=== PATIENT | female | born 1955 | race American Indian/Alaskan Native ===

== ENCOUNTER 2018-05-21 08:41 | Emergency (ER) | payer SELFPAY ==
--- NOTE | 2018-05-21 11:03 | RAD REPORT ---
EXAM DESCRIPTION: RAD - Foot Right 3 View - 05/21/2018 10:53 am CLINICAL HISTORY: Fall, foot pain COMPARISON: None. FINDINGS: No fracture, dislocation or periosteal reaction identifiable. IP joint space narrowing pre sent second- fifth toes. Second- fifth MTP joints are spared. Patient has moderate bunion deformity a nd valgus angulation deformity at first MTP joint. First MTP joint space narrowing is present. No acu te component seen. No air or foreign body in the soft tissues. No plantar spur. IMPRESSION: Degenerative changes are present as detailed. No acute bone finding identifiable.
--- NOTE | 2018-05-21 11:04 | RAD REPORT ---
EXAM DESCRIPTION: RAD - Foot Left 3 View - 05/21/2018 10:53 am CLINICAL HISTORY: Fall, foot pain COMPARISON: None. FINDINGS: No fracture, dislocation or periosteal reaction. No acute or destructive bony process. IP joint space narrowing is present second- fifth toes. Patient has a prominent bunion deformity with v algus angulation at the first MTP joint. No acute component at this site. No plantar spur is seen. Sm all spur at the Achilles attachment. No air or foreign body in the soft tissues. IMPRESSION: Degenerative change in the foot as detailed. No fracture or acute finding.
--- NOTE | 2018-05-21 11:12 | RAD REPORT ---
EXAM DESCRIPTION: CT - CTHCSPWOC - 05/21/2018 10:56 am CLINICAL HISTORY: Fall, blunt force trauma to the head and face, head, face and neck pain COMPARISON: None. TECHNIQUE: Axial 5 mm thick images of the head were obtained. Axial 2 mm thick images of the cervica l spine were obtained with sagittal and coronal reconstruction images generated and reviewed. All CT scans are performed using dose optimization technique as appropriate and may include automated exposure control or mA/KV adjustment according to patient size. FINDINGS: No intracranial hemorrhage, mass, edema or acute intracranial finding. No suspicion for ac port gamble infarction. No extra-axial fluid collections. Mastoid air cells are clear. No fracture of the card scraper nial vault. Physiologic calcifications are present. Sinuses, facial bones and orbits are separately d etailed. Cervical bodies are normal in height. No subluxation abnormality. Right lateral tilt of the cervical spine is believed to be positioning artifact. No skullbase fracture. No fracture changes are seen. Pa dmitry has facet degenerative change at multiple levels. This is most prominent at C3-4. No central sp inal stenosis seen. No significant disc space narrowing seen. No fracture or acute bony abnormality. Central canal detail is inherently limited. No paraspinal mass or hematoma. A few small sub centimeter bilateral cervical lymph nodes are present . No bulky lymphadenopathy. IMPRESSION: No hemorrhage, edema or acute intracranial finding. Cervical spine degenerative changes are present as detailed. No acute findings seen. Orbits, facial bones and sinuses are separately detailed. Negative CT cervical spine examination for acute or significant finding.
--- NOTE | 2018-05-21 11:16 | RAD REPORT ---
EXAM DESCRIPTION: CT - Facial Bones W/ Mpr - 05/21/2018 10:56 am CLINICAL HISTORY: Fall, blunt force trauma to the face, soft tissue swelling upper lip and nose COMPARISON: CT head same date, CT head June 2010 TECHNIQUE: Axial 2 millimeter thick images of the facial bones were obtained with sagittal and coron al reconstruction imaging. All CT scans are performed using dose optimization technique as appropriate and may include automated exposure control or mA/KV adjustment according to patient size. FINDINGS: Patient has an empty sella configuration. Cystic sella mass is unlikely. Size of the sella has not changed from 2009. Mastoid air cells are clear. No air-fluid level in the paranasal sinuses. Trace amount of mucosal thi ckening is seen in the right maxillary sinus. Condyles of the mandible are normally positioned. No ma ndible fracture seen. No globe or orbital content abnormality seen. Swelling of the upper lip and nos e is not associated with any fracture deformity. Nasal septum is midline. IMPRESSION: No facial bone fracture identified. No acute facial bone, sinus or orbital abnormality.
[2018-05-21] MEDS ORDERED: HYDROCODONE/APAP 5/325 MG TAB ONE (11:17)
--- NOTE | 2018-05-21 11:23 | RAD REPORT ---
EXAM DESCRIPTION: RAD - Wrist Left 3 View - 05/21/2018 10:34 am CLINICAL HISTORY: Fall, wrist pain COMPARISON: None. FINDINGS: No fracture is identified. There is no dislocation or periosteal reaction noted. Degenerat david changes present at the first carpal - metacarpal articulation, mild in degree. Slight widening of the scapholunate joint space is present. IMPRESSION: No acute fracture and no dislocation. Slight widening of the scapholunate joint space is present. However, this is not definitive for ligam entous injury. If the patient has continued, unexplained wrist pain symptoms, followup MR imaging could be performed .
--- NOTE | 2018-05-21 11:39 | ER ---
Nurse's Notes [facility] Name: Zaynab Cochran Age: 63 yrs Sex: Female : 1955 Arrival Date: 05/21/2018 Time: 08:43 Bed 25 Private MD: Nick Campos E Diagnosis: Abrasion of lip and oral cavity;Unspecified sprain of left wrist;Other slipping, tripping and stumbling and falls Presentation: 05/21 09:18 Presenting complaint: Patient states: tripped on curb fell face first and landed on dm5 left arm and face. top lip and nose swollen. pt complaining of both feet hurting. No bleeding at this time. Transition of care: patient was not received from another setting of care. 09:18 Method Of Arrival: Ambulatory dm5 09:40 Acuity: HANK 3 dm5 10:30 Onset of symptoms was May 21, 2018. Risk Assessment: Do you want to hurt yourself em or someone else? Patient reports no desire to harm self or others. Initial Sepsis Screen: Does the patient meet any 2 criteria? No. Patient's initial sepsis screen is negative. Does the patient have a suspected source of infection? No. Patient's initial sepsis screen is negative. Care prior to arrival: None. Historical: - Allergies: 09:20 No Known Allergies; dm5 - Home Meds: 09:20 Triamterene-Hydrochlorothiazid Oral [Active]; lisinopril Oral [Active]; amlodipine oral dm5 [Active]; - Immunization history:: Adult Immunizations up to date. - Social history:: Smoking status: Patient/guardian denies using tobacco. - Ebola Screening: : Patient negative for fever greater than or equal to 101.5 degrees Fahrenheit, and additional compatible Ebola Virus Disease symptoms Patient denies exposure to infectious person Patient denies travel to an Ebola-affected area in the 21 days before illness onset No symptoms or risks identified at this time. Screenin:22 Abuse screen: Denies threats or abuse. Denies injuries from another. Nutritional iw screening: No deficits noted. Tuberculosis screening: No symptoms or risk factors identified. Fall Risk None identified. Assessment: 10:21 General: Appears in no apparent distress. Behavior is calm, cooperative. Pain: iw Complains of pain in left arm. Neuro: Level of Consciousness is awake, alert, obeys commands, Oriented to person, place, time. Cardiovascular: Heart tones S1 S2 present. Respiratory: Respiratory effort is even, unlabored, Respiratory pattern is regular, symmetrical. Derm: Skin is intact, is healthy with good turgor. Musculoskeletal: Range of motion: limited in left elbow and left wrist. 11:30 Reassessment: Patient appears in no apparent distress at this time. Patient and/or em family updated on plan of care and expected duration. Pain level reassessed. Patient is alert, oriented x 3, equal unlabored respirations, skin warm/dry/pink. Vital Signs: 09:20 BP 164 / 86; Pulse 66; Resp 16; Temp 98.8; Pulse Ox 98% on R/A; Weight 104.33 kg; dm5 Height 5 ft. 5 in. (165.10 cm); Pain 6/10; 10:30 BP 159 / 77; Pulse 58; Resp 18; Pulse Ox 99% on R/A; Pain 9/10; em 12:03 BP 138 / 90; Pulse 59; Resp 16; Pulse Ox 100% on R/A; Pain 5/10; em 09:20 Body Mass Index 38.27 (104.33 kg, 165.10 cm) dm5 ED Course: 08:43 Patient arrived in ED. as 08:44 Nick Campos MD is Private Physician. as 09:20 Arm band placed on right wrist. Patient placed in waiting room. dm5 09:40 Triage completed. dm5 10:06 Neo Campuzano NP is PHCP. pm1 10:06 Mario Hunter MD is Attending Physician. pm1 10:19 Jaime Loera LVN is Primary Nurse. em 10:34 XRAY Wrist LEFT 3 view In Process Unspecified. EDMS 10:46 Foot Right 3 View XRAY In Process Unspecified. EDMS 10:46 Foot Left 3 View XRAY In Process Unspecified. EDMS 10:56 CT completed. Patient tolerated procedure well. Patient moved to CT via wheelchair. jg6 Patient moved back from CT. 10:57 CT Head C Spine In Process Unspecified. EDMS 10:57 CT Facial Bones W/O Con In Process Unspecified. EDMS 11:16 No provider procedures requiring assistance completed. em 12:01 Patient has correct armband on for positive identification. Bed in low position. Call em light in reach. 12:02 Patient did not have IV access during this emergency room visit. em Administered Medications: 11:14 Drug: [place] 5 mg-325 mg 1 tabs Route: PO; em 12:00 Follow up: Response: No adverse reaction; Pain is decreased em Outcome: 11:38 Discharge ordered by MD. pm1 12:02 Discharged to home ambulatory. em 12:02 Condition: good 12:02 Discharge instructions given to patient, Instructed on discharge instructions, follow up and referral plans. medication usage, Demonstrated understanding of instructions, follow-up care, medications, Prescriptions given X 2. 12:03 Patient left the ED. em Signatures: Dispatcher [employer] Venita Madison RN RN dm5 Jaime Loera, CANNERY WORKER CANNERY WORKER Sondra Stewart Irene, RN RN iw Marinas, Patrick, BEBE FACTORY MAINTENANCE TECHNICIAN pm1 Cece Sanchesg6
--- NOTE | 2018-05-21 11:39 | EDPHYS ---
Physician Documentation [facility] Name: aZynab Cochran Age: 63 yrs Sex: Female : 1955 Arrival Date: 05/21/2018 Time: 08:43 Bed 25 Private MD: Nick Campos E ED Physician Mario Hunter HPI: 05/21 10:30 This 63 yrs old Other Female presents to ER via Ambulatory with complaints of Fall pm1 Injury. 10:30 Details of fall: The patient fell from an upright position, while walking. Onset: The pm1 symptoms/episode began/occurred just prior to arrival. Associated injuries: The patient sustained left wrist, right foot, left foot, pain. Abrasion to outside and inside of lip. Lip swelling. Patient was walking and tripped on an elevation of the sidewalk. Patient landed with both hands out in front of her. Patient hit her lip on the concrete. Patient complaining of bilateral foot pain, left wrist pain, and swelling to lip, and headache. No LOC, neck pain, nausea or vomiting. Historical: - Allergies: 09:20 No Known Allergies; dm5 - Home Meds: 09:20 Triamterene-Hydrochlorothiazid Oral [Active]; lisinopril Oral [Active]; amlodipine oral dm5 [Active]; - Immunization history:: Adult Immunizations up to date. - Social history:: Smoking status: Patient/guardian denies using tobacco. - Ebola Screening: : Patient negative for fever greater than or equal to 101.5 degrees Fahrenheit, and additional compatible Ebola Virus Disease symptoms Patient denies exposure to infectious person Patient denies travel to an Ebola-affected area in the 21 days before illness onset No symptoms or risks identified at this time. ROS: 10:30 Constitutional: Negative for fever, chills, and weight loss, Eyes: Negative for injury, pm1 pain, redness, and discharge, ENT: Negative for injury, pain, and discharge, Neck: Negative for injury, pain, and swelling, Cardiovascular: Negative for chest pain, palpitations, and edema, Respiratory: Negative for shortness of breath, cough, wheezing, and pleuritic chest pain, Abdomen/GI: Negative for abdominal pain, nausea, vomiting, diarrhea, and constipation, Back: Negative for injury and pain. 10:30 Neuro: Negative for headache, weakness, numbness, tingling, and seizure. 10:30 MS/extremity: Positive for pain, of the left foot and right foot and left wrist. 10:30 Skin: Positive for abrasion(s), of the mouth. Exam: 10:30 Constitutional: This is a well developed, well nourished patient who is awake, alert, pm1 and in no acute distress. 10:30 Eyes: Pupils equal round and reactive to light, extra-ocular motions intact. Lids and lashes normal. Conjunctiva and sclera are non-icteric and not injected. Cornea within normal limits. Periorbital areas with no swelling, redness, or edema. ENT: Nares patent. No nasal discharge, no septal abnormalities noted. Tympanic membranes are normal and external auditory canals are clear. Oropharynx with no redness, swelling, or masses, exudates, or evidence of obstruction, uvula midline. Mucous membranes moist. Neck: Trachea midline, no thyromegaly or masses palpated, and no cervical lymphadenopathy. Supple, full range of motion without nuchal rigidity, or vertebral point tenderness. No Meningismus. Chest/axilla: Normal chest wall appearance and motion. Nontender with no deformity. No lesions are appreciated. Cardiovascular: Regular rate and rhythm with a normal S1 and S2. No gallops, murmurs, or rubs. Normal PMI, no JVD. No pulse deficits. Respiratory: Lungs have equal breath sounds bilaterally, clear to auscultation and percussion. No rales, rhonchi or wheezes noted. No increased work of breathing, no retractions or nasal flaring. Abdomen/GI: Soft, non-tender, with normal bowel sounds. No distension or tympany. No guarding or rebound. No evidence of tenderness throughout. Back: No spinal tenderness. No costovertebral tenderness. Full range of motion. Skin: Warm, dry with normal turgor. Normal color with no rashes, no lesions, and no evidence of cellulitis. 10:30 Head/face: Noted is no obvious of injury or deformity except abrasion(s), that are mild, of the upper lip, swelling, that is mild, of the upper lip and lower lip. 10:30 Musculoskeletal/extremity: Extremities: grossly normal except: noted in the heel of left hand: tenderness, There is no evidence of decreased ROM, deformity, noted in the left first toe: tenderness, no evidence of decreased ROM, deformity, swelling, noted in the right first toe: tenderness, no evidence of decreased ROM, deformity, swelling. Vital Signs: 09:20 BP 164 / 86; Pulse 66; Resp 16; Temp 98.8; Pulse Ox 98% on R/A; Weight 104.33 kg; dm5 Height 5 ft. 5 in. (165.10 cm); Pain 6/10; 10:30 BP 159 / 77; Pulse 58; Resp 18; Pulse Ox 99% on R/A; Pain 9/10; em 12:03 BP 138 / 90; Pulse 59; Resp 16; Pulse Ox 100% on R/A; Pain 5/10; em 09:20 Body Mass Index 38.27 (104.33 kg, 165.10 cm) dm5 MDM: 10:06 Patient medically screened. pm1 11:37 Data reviewed: vital signs. Data interpreted: Pulse oximetry: on room air is 99 %. pm1 Interpretation: normal. Counseling: I had a detailed discussion with the patient and/or guardian regarding: the historical points, exam findings, and any diagnostic results supporting the discharge/admit diagnosis, radiology results, the need for outpatient follow up, to return to the emergency department if symptoms worsen or persist or if there are any questions or concerns that arise at home. 05/21 09:22 Order name: XRAY Wrist LEFT 3 view; Complete Time: 11:34 dm5 05/21 10:18 Order name: Foot Right 3 View XRAY; Complete Time: 11:05 pm1 05/21 10:18 Order name: Foot Left 3 View XRAY; Complete Time: 11:05 pm1 05/21 10:18 Order name: CT Head C Spine; Complete Time: 11:34 pm1 05/21 10:18 Order name: CT Facial Bones W/O Con; Complete Time: 11:34 pm1 05/21 11:38 Order name: Splint - Wrist; Complete Time: 12:00 pm1 Administered Medications: 11:14 Drug: [place] 5 mg-325 mg 1 tabs Route: PO; em 12:00 Follow up: Response: No adverse reaction; Pain is decreased em Disposition: 13:56 Co-signature as Attending Physician, Mario Hunter MD I agree with the assessment and kdr plan of care. Disposition: 05/21/18 11:38 Discharged to Home. Impression: Abrasion of lip and oral cavity, Unspecified sprain of left wrist, Other slipping, tripping and stumbling and falls. - Condition is Stable. - Discharge Instructions: Wrist Pain, Wrist Splint. - Prescriptions for Naprosyn 500 mg Oral Tablet - take 1 tablet by ORAL route 2 times per day take with food; 30 tablet. Tylenol- Codeine #3 300-30 mg Oral Tablet - take 2 tablets by ORAL route every 6 hours As needed; 20 tablet. - Medication Reconciliation Form, Thank You Letter, Prescription Opioid Use form. - Follow up: Emergency Department; When: As needed; Reason: Worsening of condition. Follow up: Private Physician; When: 2 - 3 days; Reason: Recheck today's complaints, Continuance of care, Re-evaluation by your physician. - Problem is new. - Symptoms have improved. Signatures: Dispatcher [employer] Venita Madison RN RN dm5 Mario Hunter MD MD [facility] Jaime Loera, SHEEP FARM WORKER SHEEP FARM WORKER em Neo Campuzano, HOME HEALTH AIDE HOME HEALTH AIDE pm1 Corrections: (The following items were deleted from the chart) 12:03 11:38 05/21/2018 11:38 Discharged to Home. Impression: Abrasion of lip and oral cavity; em Unspecified sprain of left wrist; Other slipping, tripping and stumbling and falls. Condition is Stable. Forms are Medication Reconciliation Form, Thank You Letter, Antibiotic Education, Prescription Opioid Use. Follow up: Emergency Department; When: As needed; Reason: Worsening of condition. Follow up: Private Physician; When: 2 - 3 days; Reason: Recheck today's complaints, Continuance of care, Re-evaluation by your physician. Problem is new. Symptoms have improved. pm1
== END 2018-05-21 12:03 | disposition home or self-care (01) ==
LOC: ER 08:41
DX: S63.502A Unspecified sprain of left wrist, initial encounter (principal); S00.512A Abrasion of oral cavity, initial encounter; W18.09XA Striking against other object with subsequent fall, initial encounter; Y93.01 Activity, walking, marching and hiking; Y92.9 Unspecified place or not applicable
CPT/HCPCS: 70450; 70486; 72125; 76377; 99284

== ENCOUNTER 2022-03-02 16:23 | Emergency (ER) | payer SELFPAY ==
--- OUTSIDE RECORDS SUMMARY | 2022-03-02 16:26 | XMS REPORT | Continuity of Care Document ---
:1955 Author Organization [facility] t Address [address] [place] [address] Dr. Mercado [address] [place] [id number] Care Team Providers Name Role Phone CECILUBROECK_L Attending Clinician Unavailable SCHAUBROECK_L Admitting Clinician Unavailable Payers Payer Name Policy Type Policy Number Effective Date Expiration Date S ource Problems This patient has no known problems. Allergies, Adverse Reactions, Alerts This patient has no known allergies or adverse reactions. Medications This patient has no known medications. Procedures This patient has no known procedures. Encounters Start End Encounter Admission Attending Care Care Encounter Source Date/Time Date/Time Type Type Clinicians Facility Department ID 2021-01-19 2021-01-19 Outpatient [facility] [address] 01:03:00 01:03:00 [facility] 2020-12-15 2020-12-15 Outpatient [facility] [address] 01:02:00 01:02:00 [facility] 2020-11-10 2020-11-10 Outpatient [facility] [address] 01:02:00 01:02:00 _L [facility] Results This patient has no known results.
[2022-03-02 18:00] LABS: Protime INR 1.02
[2022-03-02 18:04] LABS: Hematocrit 44.4 % (36.0-45.0); Lymphocytes % 19.9 % (15.3-44.8); MCV 88.6 fL (80-100); MPV 8.6 fL (7.6-11.3); RBC Red Blood Cell Count 5.01 M/uL (3.86-4.86)
[2022-03-02 18:07] LABS: SARS-CoV-2 Antigen Rapid Res Negative (Negative)
[2022-03-02 18:22] LABS: ALT/SGPT 32 U/L (12-78); Albumin 3.6 g/dL (3.4-5.0); Alkaline Phosphatase 93 U/L (45-117); BUN Blood Urea Nitrogen 23 mg/dL (7-18); Bicarbonate 26 mmol/L (21-32); Bilirubin Total 0.2 mg/dL (0.2-1.0); Glomerular Filtration Rate 55 ml/min (=/>90); Glucose Level 90 mg/dL (74-106); NT PRO-BNP 18 pg/mL (<125); Protein, Total 7.5 g/dL (6.4-8.2); Sodium Level 139 mmol/L (136-145); Troponin High Sensitivity 29.2 pg/mL (<58.9)
[2022-03-02 18:23] LABS: AST/SGOT 19 U/L (15-37); Bilirubin Direct < 0.1 mg/dL (0-0.2); Magnesium 2.2 mg/dL (1.8-2.4)
--- NOTE | 2022-03-02 18:39 | RAD REPORT ---
EXAM DESCRIPTION: RAD - Chest Single View - 03/02/2022 6:29 pm CLINICAL HISTORY: weakness COMPARISON: No comparisons FINDINGS: Lines: None. Lungs: Prominence of the pulmonary vasculature. Pleural: No significant pleural effusions or pneumothorax. Cardiac: Enlarged cardiac silhouette. Bones: No acute fractures. Other: IMPRESSION: Mild edema suspected.
--- NOTE | 2022-03-02 18:44 | EDPHYS ---
Physician Documentation [facility] Name: Zaynab Cochran Age: 66 yrs Sex: Female : 1955 Arrival Date: 03/02/2022 Time: 16:26 Bed 8 Private MD: Olamide Castro ED Physician Fiona Scruggs HPI: 03/02 16:58 This 66 yrs old Black Female presents to ER via Ambulatory with complaints of Dizziness.jmm 16:58 The patient has experienced near-syncope. Onset: The symptoms/episode began/occurred jmm gradually. This is a 66-year-old female with history of hypertension and vertigo that presents emerged department with complaints of lightheadedness, fatigue beginning approximately 4 days ago. Patient denies vomiting, abdominal pain, chest pain. States that this does not feel like previous episodes of vertigo.. Historical: - Allergies: 16:39 No Known Allergies; tp1 - Home Meds: 16:39 amlodipine oral [Active]; lisinopril Oral [Active]; Triamterene-Hydrochlorothiazid Oral tp1 [Active]; - PMHx: 16:39 Hypertension; vertigo; tp1 - Immunization history:: Client reports having NOT received the Covid vaccine. Client reports receiving the 2nd dose of the Covid vaccine. - Social history:: Smoking status: Patient denies any tobacco usage or history of. ROS: 16:58 Cardiovascular: Negative for chest pain, palpitations, and edema, Respiratory: Negative jmm for shortness of breath, cough, wheezing, and pleuritic chest pain, Abdomen/GI: Negative for abdominal pain, nausea, vomiting, diarrhea, and constipation. 16:58 Constitutional: Positive for body aches, chills. 16:58 Neuro: Positive for weakness. 16:58 All other systems are negative. Exam: 16:58 Constitutional: This is a well developed, well nourished patient who is awake, alert, jmm and in no acute distress. Head/Face: atraumatic. Eyes: EOMI, no conjunctival erythema appreciated ENT: Moist Mucus Membranes Neck: Trachea midline, Supple Chest/axilla: Normal chest wall appearance and motion. Cardiovascular: Regular rate and rhythm. No edema appreciated Respiratory: Normal respirations, no respiratory distress appreciated Abdomen/GI: Non distended Back: Normal ROM Skin: General appearance color normal MS/ Extremity: Moves all extremities, no obvious deformities appreciated, no edema noted to the lower extremities Neuro: Awake and alert Psych: Behavior is normal, Mood is normal, Patient is cooperative and pleasant 17:41 ECG was reviewed by the Attending Physician. [facility] Vital Signs: 16:35 BP 148 / 82; Pulse 92; Resp 16; Temp 98.1; Pulse Ox 98% on R/A; Weight 113.4 kg; Height tp1 0 ft. 1 in. (4 cm); Pain 0/10; 17:47 BP 149 / 61; Pulse 66; Resp 16; Pulse Ox 99% ; bp 19:25 BP 143 / 75; Pulse 82; Resp 20; Temp 98.9; Pulse Ox 99% on R/A; Pain 0/10; kl 16:35 Body Mass Index 04079.81 (113.40 kg, 4 cm) tp1 MDM: 16:58 Patient medically screened. [facility] 18:43 Data reviewed: vital signs, nurses notes. Counseling: I had a detailed discussion with [facility] the patient and/or guardian regarding: the historical points, exam findings, and any diagnostic results supporting the discharge/admit diagnosis, lab results, radiology results, the need for outpatient follow up, to return to the emergency department if symptoms worsen or persist or if there are any questions or concerns that arise at home. 03/02 17:01 Order name: Basic Metabolic Panel; Complete Time: 18:27 [facility] 03/02 17:01 Order name: CBC with Diff; Complete Time: 18:18 [facility] 03/02 17:01 Order name: LFT's; Complete Time: 18:27 [facility] 03/02 17:01 Order name: Magnesium; Complete Time: 18:27 [facility] 03/02 17:01 Order name: NT PRO-BNP; Complete Time: 18:27 [facility] 03/02 17:01 Order name: PT-INR; Complete Time: 18:18 [facility] 03/02 17:01 Order name: Troponin HS; Complete Time: 18:27 [facility] 03/02 17:01 Order name: XRAY Chest (1 view); Complete Time: 18:40 [facility] 03/02 17:01 Order name: EKG; Complete Time: 17:03 [facility] 03/02 17:01 Order name: Cardiac monitoring; Complete Time: 17:01 [facility] 03/02 17:01 Order name: EKG - Nurse/Tech; Complete Time: 17:46 [facility] 03/02 17:01 Order name: Influenza Screen (a \T\ B); Complete Time: 18:18 [facility] 03/02 17:01 Order name: SARS RAPID; Complete Time: 18:18 [facility] 03/02 17:01 Order name: IV Saline Lock; Complete Time: 17:47 [facility] 03/02 17: Order name: Labs collected and sent; Complete Time: 17:47 [facility] 03/02 17: Order name: O2 Per Protocol; Complete Time: 17: [facility] 03/02 17:01 Order name: O2 Sat Monitoring; Complete Time: : [facility] EC:41 Rate is 69 beats/min. Rhythm is regular. QRS [place] is Normal. SC interval is normal. QRS jmm interval is normal. No ST changes noted. Reviewed by me. Administered Medications: 19:24 Drug: Tamiflu (oseltamivir) 75 mg Route: PO; 19:27 Follow up: Response: No adverse reaction Disposition: 03/03 07:50 STAFF ATTESTATION STATEMENT I was immediately available on-site in the Emergency sd2 Department for consultation in the care of the patient. Fiona Scruggs MD. Disposition Summary: 03/02/22 18:44 Discharge Ordered Location: Home [facility] Condition: Stable [facility] Diagnosis - Influenza [facility] Followup: [facility] - With: Olamide Castro - When: 1 - 2 days - Reason: Recheck today's complaints, Continuance of care, Re-evaluation by your physician Discharge Instructions: - Discharge Summary Sheet [facility] - Influenza, Adult [facility] Forms: - Medication Reconciliation Form [facility] - Thank You Letter [facility] - Antibiotic Education [facility] - Prescription Opioid Use [facility] Prescriptions: - Tamiflu 75 mg Oral Capsule - take 1 tablet by ORAL route every 12 hours for 5 days; 10 tablet; Refills: 0, [facility] Product Selection Permitted Signatures: Dispatcher [employer] Poonam Mcdowell, RN RN Fausto Morgan PA PA jmm Parker, Tiffany, RN RN tp1 Dunlop, Stephanie sd2
--- NOTE | 2022-03-02 18:44 | ER ---
Nurse's Notes [facility] Name: Zaynab Cochran Age: 66 yrs Sex: Female : 1955 Arrival Date: 03/02/2022 Time: 16:26 Bed 8 Private MD: Olamide Castro Diagnosis: Influenza Presentation: 03/02 16:35 Chief complaint: Patient states: stated has felt dizzy and lightheaded since Friday in tp1 a standing and laying position. Has a HX of vertigo. Denies NVD, headache or blurred vision. Coronavirus screen: Vaccine status: Patient reports receiving the 2nd dose of the covid vaccine. Ebola Screen: Patient denies exposure to infectious person. Patient denies travel to an Ebola-affected area in the 21 days before illness onset. Initial Sepsis Screen: Does the patient meet any 2 criteria? No. Patient's initial sepsis screen is negative. Does the patient have a suspected source of infection? No. Patient's initial sepsis screen is negative. Risk Assessment: Do you want to hurt yourself or someone else? Patient reports no desire to harm self or others. Onset of symptoms was February 26, 2022. 16:35 Method Of Arrival: Ambulatory tp1 16:35 Acuity: HANK 3 tp1 Triage Assessment: 16:39 General: Appears in no apparent distress. comfortable, Behavior is calm, cooperative. tp1 Pain: Denies pain. 16:39 Neuro: Level of Consciousness is awake, alert, obeys commands, Oriented to person, tp1 place, time, situation, Reports dizziness, Denies blurred vision headache. Historical: - Allergies: 16:39 No Known Allergies; tp1 - Home Meds: 16:39 amlodipine oral [Active]; lisinopril Oral [Active]; Triamterene-Hydrochlorothiazid Oral tp1 [Active]; - PMHx: 16:39 Hypertension; vertigo; tp1 - Immunization history:: Client reports having NOT received the Covid vaccine. Client reports receiving the 2nd dose of the Covid vaccine. - Social history:: Smoking status: Patient denies any tobacco usage or history of. Screenin:43 Abuse screen: Denies threats or abuse. Denies injuries from another. Nutritional bp screening: No deficits noted. Tuberculosis screening: No symptoms or risk factors identified. Fall Risk None identified. Assessment: 16:43 General: SEE TRIAGE NOTE. Neuro: Level of Consciousness is awake, alert, obeys bp commands, Gait is steady. 17:47 Reassessment: No changes from previously documented assessment. Patient and/or family bp updated on plan of care and expected duration. Pain level reassessed. Vital Signs: 16:35 BP 148 / 82; Pulse 92; Resp 16; Temp 98.1; Pulse Ox 98% on R/A; Weight 113.4 kg; Height tp1 0 ft. 1 in. (4 cm); Pain 0/10; 17:47 BP 149 / 61; Pulse 66; Resp 16; Pulse Ox 99% ; bp 19:25 BP 143 / 75; Pulse 82; Resp 20; Temp 98.9; Pulse Ox 99% on R/A; Pain 0/10; kl 16:35 Body Mass Index 56785.81 (113.40 kg, 4 cm) tp1 ED Course: 16:26 Patient arrived in ED. mr 16:26 Olamide Castro is Private Physician. mr 16:39 Triage completed. tp1 16:39 Arm band placed on. tp1 16:42 Braden Elizabeth, RN is Primary Nurse. bp 16:43 Patient has correct armband on for positive identification. Bed in low position. Call bp light in reach. Side rails up X2. Adult w/ patient. 16:54 [facility] 16:54 Fiona Scruggs is Attending Physician. jmm 17:45 Inserted saline lock: 20 gauge in right antecubital area, using aseptic technique. bp Blood collected. 18:31 XRAY Chest (1 view) In Process Unspecified. EDMS 18:44 Olamide Castro is Referral Physician. m 19:26 No provider procedures requiring assistance completed. IV discontinued, intact, kl bleeding controlled, No redness/swelling at site. Administered Medications: 19:24 Drug: Tamiflu (oseltamivir) 75 mg Route: PO; kl 19:27 Follow up: Response: No adverse reaction kl Medication: 16:43 VIS not applicable for this client. bp Outcome: 18:44 Discharge ordered by . jmm 19:26 Discharged to home ambulatory. kl 19:26 Condition: good 19:26 Discharge instructions given to patient, Instructed on discharge instructions, follow up and referral plans. medication usage, Demonstrated understanding of instructions, follow-up care, medications. 19:27 Patient left the ED. akira Signatures: Dispatcher [employer] Poonam Mcdowell RN RN kl Mickail, Joel, PA PA jmm Rivera, Mary mr Braden Elizabeth RN RN bp Parker, Tiffany, RN RN tp1 Corrections: (The following items were deleted from the chart) 16:41 16:35 Coronavirus screen: Vaccine status: Patient reports being unvaccinated. tp1 tp1
[2022-03-02] MEDS ORDERED: OSELTAMIVIR 75 MG CAP ONE (19:23)
[2022-03-02 19:35] VITALS: O2SAT 99
[2022-03-02 19:38] VITALS: BP 143/75; TEMP 98.9
--- NOTE | 2022-03-04 09:29 | EKG ---
Test Date: 2022-03-02 Test Time: 17:35:59 Remote Encoding Center Manager: BP MEASUREMENT RESULTS: Intervals: Rate: 69 PA: 158 QRSD: 102 QT: 398 QTc: 426 [place]: P: 49 PA: 158 QRS: 41 T: 57 INTERPRETIVE STATEMENTS: Normal sinus rhythm Nonspecific T wave abnormality Abnormal ECG Compared to ECG 10/08/2017 08:35:05 No significant changes Electronically Signed On 03-04-22 09:25:05 CDT by Jose Mireles
== END 2022-03-02 19:27 | disposition home or self-care (01) ==
LOC: ER 16:23
DX: J11.1 Influenza due to unidentified influenza virus with other respiratory manifestations (principal); Z20.822 Contact with and (suspected) exposure to COVID-19; I10 Essential (primary) hypertension
CPT/HCPCS: 36415; 71045; 80048; 80076; 83735; 83880; 84484; 85025; 85610; 87804; 87811; 93005; 99284

== ENCOUNTER 2023-02-21 07:24 | Emergency (ER) | payer OTHER, SELFPAY ==
--- OUTSIDE RECORDS SUMMARY | 2023-02-21 07:26 | XMS REPORT | Continuity of Care Document ---
:1955 Author Organization [facility] Address [address] [place] [address] [place] [id number] Care Team Providers Name Role Phone SCHAUBROECK_L Attending Clinician Unavailable SCHAUBROECK_L Admitting Clinician Unavailable [...] Date/Time Type Type Clinicians Facility Department ID 2022-11-20 2022-11-20 Outpatient [facility] [id number] 00:00:00 00:00:00 [facility] 2022-10-16 2022-10-16 Outpatient [facility] [id number] 00:00:00 00:00:00 [facility] 2022-09-11 2022-09-11 Outpatient [facility] [id number] 00:00:00 00:00:00 [facility] 2021-01-19 2021-01-19 Outpatient [facility] [id number] 01:03:00 01:03:00 [facility] 2020-12-15 2020-12-15 Outpatient [facility] [address] 01:02:00 01:02:00 [facility] 2020-11-10 2020-11-10 Outpatient [place] [id number] 01:02:00 01:02:00 [facility] Results This patient has no known results.
--- NOTE | 2023-02-21 08:06 | RAD REPORT ---
EXAM DESCRIPTION: [place] Single View02/21/2023 7:42 am CLINICAL HISTORY: COUGH COMPARISON: Chest Single View dated 03/02/2022; Neck Angio dated 10/08/2017 TECHNIQUE: Portable AP view of the chest. FINDINGS: The lungs are clear. No pneumothorax or effusion. The cardiac silhouette is again mildly enlarged. Tortuous appearance of the aorta. There is increasing prominence of the caliber of the arch , although some patient rotation limits evaluation. A retrocardiac opacity may relate to a hiatal her marcos, unchanged. IMPRESSION: Tortuous appearance of the aorta with apparent increase in prominence of the caliber of the arch. This could relate to tortuosity, or aneurysmal dilation. If there is persistent clinical co ncern, additional evaluation by CT of the chest would be helpful. No acute pulmonary process.
--- NOTE | 2023-02-21 08:11 | RAD REPORT ---
EXAM DESCRIPTION: CT - Head Brain Wo Cont - 02/21/2023 7:44 am CLINICAL HISTORY: DIZZINESS COMPARISON: Facial Bones W/ Mpr dated 05/21/2018; HEAD BRAIN W O CONTRAST dated 06/29/2010 TECHNIQUE: Noncontrast head CT images were obtained without IV contrast. Multiplanar reformats were generated and reviewed. All CT scans are performed using dose optimization technique as appropriate and may include automated exposure control or mA/KV adjustment according to patient size. FINDINGS: No intracranial hemorrhage, mass, or edema. Midline structures are unremarkable. Normal ventricular caliber for age. Hernandez-white matter differentiation is preserved, without evidence of acute infarct. No abnormal extra- axial fluid collections. Mastoid air cells and visualized portions of the paranasal sinuses are clear. No acute bony findings. IMPRESSION: No evidence of an acute intracranial process.
[2023-02-21] MEDS ORDERED: NA CHLORIDE 0.9% 1,000 ML ONE (08:19)
[2023-02-21 08:56] LABS: Absolute Lymphocytes (CBC) 1.9 K/uL (0.7-4.9); Hematocrit 46.8 % (36.0-45.0); Lymphocytes % 21.1 % (15.3-44.8); MCV 91.9 fL (80-100); MPV 9.4 fL (7.6-11.3)
[2023-02-21 09:01] LABS: Specific Gravity 1.027 (1.005-1.030); Urine Bacteria <20 /HPF (<20); Urine Bilirubin NEGATIVE (Negative); Urine Blood Negative (Negative); Urine Color Light-Yellow (Yellow); Urine Glucose NEGATIVE (Negative); Urine Mucus Slight /HPF (None Seen); Urine Protein TRACE (Negative); Urine RBC <5 /HPF (None Seen); Urine Urobilinogen Normal (Normal)
[2023-02-21 09:02] LABS: Protime INR 1.02
[2023-02-21 09:03] LABS: Urine Clarity Slightly Cloudy (Clear)
--- NOTE | 2023-02-21 09:10 | RAD REPORT ---
EXAM DESCRIPTION: US - CP - 02/21/2023 8:18 am CLINICAL HISTORY: DIZZINESS COMPARISON: Head C Spine Mpr Wo Con dated 05/21/2018 TECHNIQUE: Real-time sonographic grayscale, color duplex, and spectral wave Doppler evaluation of mendoza carotid systems was performed. FINDINGS: Normal high resistance waveforms are noted in both external carotid arteries. The common c arotid arteries and internal carotid arteries show normal low resistance waveforms. No significant plaque formation is seen. Poor penetration limits evaluation. Peak systolic velocity less than 125 cm/ sec bilaterally. ICA/CCA peak systolic ratios less than 2.0 bilaterally. Antegrade flow seen in both vertebral arteries. IMPRESSION: No significant atherosclerotic changes noted. No evidence of a hemodynamically significant stenosis. Evaluation of carotid artery stenosis, if any, is reported based on consensus recommendations of the Society of Radiologists in Ultrasound (Alessandro et al., Radiology, 2003)
[2023-02-21 09:21] LABS: Albumin 3.7 g/dL (3.4-5.0); Bilirubin Direct 0.1 mg/dL (0-0.2); Bilirubin Indirect, Calculated 0.2 mg/dL (0.2-0.8); Bilirubin Total 0.3 mg/dL (0.2-1.0); Magnesium 2.2 mg/dL (1.6-2.4); Potassium 3.4 mEq/L (3.5-5.1); Protein, Total 7.8 g/dL (6.4-8.2); Troponin High Sensitivity 27.1 pg/mL (<58.9)
[2023-02-21] MEDS ORDERED: CEFTRIAXONE 1000 MG/VIAL ONE (10:07)
[2023-02-21] MEDS ORDERED: POTASSIUM 25 MEQ EFFERV TAB ONE (10:07)
[2023-02-21] MEDS ORDERED: NA CHLORIDE 0.9% 50 ML ONE (10:07)
--- NOTE | 2023-02-21 11:00 | RAD REPORT ---
EXAM DESCRIPTION: CT - Angio Aorta For Dissection - 02/21/2023 9:48 am CLINICAL HISTORY: aaa;Abd pain COMPARISON: Chest Single View dated 02/21/2023 TECHNIQUE: Dynamically enhanced 3 mm thick images of the chest, abdomen, and pelvis were obtained du ring administration of approximately 150mL Isovue 370 IV contrast. Sagittal and coronal reconstructio ns as well as maximal intensity projection reconstruction were generated and reviewed per an aortic a ngiography protocol. All CT scans are performed using dose optimization technique as appropriate and may include automated exposure control or mA/KV adjustment according to patient size. FINDINGS: Aorta is normal in diameter with no dissection or other acute aortic findings. No aneurysm al dilation. Tortuosity of the thoracic aorta. Reconstruction images show no significant findings. Pulmonary arteries are normal as well. No mass or infiltrate in the lung parenchyma. No pleural thickening, pleural effusion or pneumothorax . No abnormal mediastinal or hilar mass or lymphadenopathy seen. No chest wall mass or abnormal axillar y lymphadenopathy. Celiac, SMA and renal arteries show no suspicious findings. Solid abdominal viscera and bowel show no significant findings. No mass or abnormal lymphadenopathy. IMPRESSION: No acute abnormalities on CT angiogram of the aorta. Tortuosity of the thoracic aorta is likely what contributes to the radiographic appearance. No other significant findings on chest, abdomen and pelvis examination.
--- NOTE | 2023-02-21 11:10 | ER ---
Nurse's Notes [facility] Name: Zaynab Cochran Age: 67 yrs Sex: Female : 1955 Arrival Date: 02/21/2023 Time: 07:24 Bed 7 Private MD: Diagnosis: Dehydration;Weakness;Essential (primary) hypertension;Hypokalemia Presentation: 02/21 07:37 Chief complaint: Patient states: Intermittent lightheadness x 2-3 weeks, PCP said it's jl7 probably dehydration. Pt denies CP, denies SOB. Coronavirus screen: At this time, the client does not indicate any symptoms associated with coronavirus-19. Ebola Screen: No symptoms or risks identified at this time. Initial Sepsis Screen: Does the patient meet any 2 criteria? No. Patient's initial sepsis screen is negative. Does the patient have a suspected source of infection? No. Patient's initial sepsis screen is negative. Risk Assessment: Do you want to hurt yourself or someone else? Patient reports no desire to harm self or others. Onset of symptoms was January 2023. 07:37 Method Of Arrival: Ambulatory [facility] 07:37 Acuity: HANK 3 jl7 Triage Assessment: 07:41 General: Appears in no apparent distress. uncomfortable, Behavior is calm, cooperative, jl7 appropriate for age. Pain: Denies pain. Neuro: Level of Consciousness is awake, alert, obeys commands, Oriented to person, place, time, situation. Cardiovascular: Reports lightheadedness. Historical: - Allergies: 07:40 No Known Allergies; jl7 - Home Meds: 07:40 amlodipine oral [Active]; lisinopril Oral [Active]; atorvastatin oral [Active]; jl7 - PMHx: 07:40 Hypertension; Vertigo; high cholesterol; jl7 - PSHx: 07:40 Total abdominal hysterectomy; Ligation of fallopian tube; jl7 - Immunization history:: Adult Immunizations up to date. - Social history:: Smoking status: Patient denies any tobacco usage or history of. - Family history:: not pertinent. Screenin:39 [facility] ED Fall Risk Assessment (Adult) History of falling in the last 3 months, ph including since admission No falls in past 3 months (0 pts) Confusion or Disorientation No (0 pts) Intoxicated or Sedated No (0 pts) Impaired Gait No (0 pts) Mobility Assist Device Used No (0 pt) Altered Elimination No (0 pt) Score/Fall Risk Level 0 - 2 = Low Risk Oriented to surroundings, Maintained a safe environment, Provided non-skid footwear, Hourly rounding (assess needs \T\ fall precautionary measures) done. Abuse screen: Denies threats or abuse. Denies injuries from another. Nutritional screening: No deficits noted. Tuberculosis screening: No symptoms or risk factors identified. Assessment: 08:13 Reassessment: Pt back from CT at this time. Awake and alert. RR even and unlabored. ss 08:23 Reassessment: ambulated to restroom with steady gait. Denies dizziness/ lightheadedness ss at this time. 08:45 General: Appears in no apparent distress. comfortable, well groomed, Behavior is calm, ph cooperative, appropriate for age. Pain: Denies pain. Neuro: Level of Consciousness is awake, alert, obeys commands, Oriented to person, place, time, situation, Plant Sciences Professor are equal bilaterally Moves all extremities. Full function Gait is steady, Speech is normal, Facial symmetry appears normal, Reports dizziness, Denies weakness blurred vision numbness headache. Cardiovascular: Reports lightheadedness, Denies chest pain, Capillary refill < 3 seconds in bilateral fingers Patient's skin is warm and dry. Respiratory: Airway is patent Respiratory effort is even, unlabored. GI: Reports diarrhea, nausea, vomiting. Derm: Skin is intact, Skin is pink, warm \T\ dry. Musculoskeletal: Circulation, motion, and sensation intact. Range of motion: intact in all extremities. 09:40 Reassessment: Pt taken to CT via stretcher. ph 11:30 Reassessment: Patient appears in no apparent distress at this time. Patient and/or ph family updated on plan of care and expected duration. Pain level reassessed. Patient is alert, oriented x 3, equal unlabored respirations, skin warm/dry/pink. D/C pending ECHO. 11:49 Reassessment: Patient appears in no apparent distress at this time. Patient and/or ph family updated on plan of care and expected duration. Pain level reassessed. Patient is alert, oriented x 3, equal unlabored respirations, skin warm/dry/pink. Vital Signs: 07:37 BP 160 / 100; Pulse 97; Resp 17; Temp 97; Pulse Ox 100% ; Weight 108.86 kg; Height 5 jl7 ft. 3 in. ; Pain 0/10; 09:29 BP 150 / 96 Supine; Pulse 86; rs5 09:29 BP 197 / 106 Standing; Pulse 94; rs5 09:29 BP 160 / 79 Sitting; Pulse 78; rs5 10:30 BP 159 / 88; Pulse 76; Resp 18; Pulse Ox 98% on R/A; ph 11:30 BP 158 / 82; Pulse 76; Resp 18; Temp 98.2; Pulse Ox 99% on R/A; ph 07:37 Body Mass Index 42.51 (108.86 kg, 160.02 cm) jl7 07:37 Pain Scale: Adult jl7 ED Course: 07:25 Patient arrived in ED. ts1 07:25 Saud Astudillo MD is Attending Physician. filiberto 07:40 Triage completed. jl7 07:41 Arm band placed on right wrist. jl7 07:42 EKG done, by ED staff, reviewed by Saud Astudillo MD. mm9 07:43 Patient has correct armband on for positive identification. Placed in gown. Bed in low mm9 position. Call light in reach. Side rails up X2. Adult w/ patient. Warm blanket given. Client placed on continuous cardiac and pulse oximetry monitoring. NIBP monitoring applied. physician office specialist on. Pulse ox on. NIBP on. 07:44 XRAY Chest (1 view) In Process Unspecified. EDMS 07:45 CT Head Brain wo Cont In Process Unspecified. EDMS 08:02 Lidia Garcia, RN is Primary Nurse. ph 08:20 US Carotid Artery Bilateral In Process Unspecified. EDMS 08:27 Missed attempt(s): 22 gauge in left antecubital area. mm9 08:45 Inserted saline lock: 22 gauge in right antecubital area, using aseptic technique. ph Blood collected. 09:39 No provider procedures requiring assistance completed. ph 09:50 CT Aorta for Dissection In Process Unspecified. EDMS 11:09 Ky Hawkins MD is Referral Physician. filiberto 11:49 Provided Education on: Rehydration. ph 11:49 IV discontinued, intact, bleeding controlled, No redness/swelling at site. Pressure ph dressing applied. Administered Medications: 08:38 Drug: NS 0.9% IV 1000 ml Route: IV; Rate: 1 bolus; Site: right antecubital; ss 11:03 Follow up: Response: No adverse reaction; IV Status: Completed infusion; IV Intake: ph 1000ml 10:32 Drug: Rocephin IV 1 grams Route: IV; Rate: per protocol; Site: right antecubital; ph 10:32 Drug: Potassium PO Effervescent Tablet 25 mEq Route: PO; ph 11:08 Follow up: Response: No adverse reaction ph Medication: 09:40 VIS not applicable for this client. ph Intake: 11:03 IV: 1000ml; Total: 1000ml. ph Outcome: 11:09 Discharge ordered by . [facility] 11:49 Discharged to home ambulatory, with family. ph 11:49 Condition: good 11:49 Discharge instructions given to patient, Instructed on discharge instructions, follow up and referral plans. Demonstrated understanding of instructions, follow-up care. 11:50 Patient left the ED. ph Signatures: Dispatcher [employer] EDMS Saud Astudillo MD MD cha Blanchard, Shelby, RN RN ss Hall, Patricia, RN RN ph Leal, Jahala, RN RN jl7 Martinez, Maria mm9 Sotello, Ricky rs5 Lorena Douglas PAS PAS ts1 Corrections: (The following items were deleted from the chart) 09:27 09:22 BP 150 / 96 Supine L Arm; Resp 86bpm; rs5 rs5 09:27 09:22 BP 160 / 79 Sitting; Pulse 79bpm; Left Arm; rs5 rs5 09:27 09:22 BP 197 / 106 Standing L Arm; Pulse 94bpm; rs5 rs5
--- NOTE | 2023-02-21 11:10 | EDPHYS ---
Physician Documentation [facility] Name: Zaynab Cochran Age: 67 yrs Sex: Female : 1955 Arrival Date: 02/21/2023 Time: 07:24 Bed 7 Private MD: ED Physician Saud Astudillo HPI: 02/21 09:06 This 67 yrs old Black Female presents to ER via Ambulatory with complaints of filiberto Lightheaded. 09:06 The patient has experienced near-syncope, almost passed out, felt dizzy. Onset: The filiberto symptoms/episode began/occurred 2 day(s) ago. Duration: This was a single episode, that lasted an unknown period of time. Context: the episode(s) was witnessed, by family, son. Associated injury: The patient did not suffer any apparent associated injury. Associated signs and symptoms: The patient has no apparent associated signs or symptoms. The patient has not experienced similar symptoms in the past. Historical: - Allergies: 07:40 No Known Allergies; jl7 - Home Meds: 07:40 amlodipine oral [Active]; lisinopril Oral [Active]; atorvastatin oral [Active]; jl7 - PMHx: 07:40 Hypertension; Vertigo; high cholesterol; jl7 - PSHx: 07:40 Total abdominal hysterectomy; Ligation of fallopian tube; jl7 - Immunization history:: Adult Immunizations up to date. - Social history:: Smoking status: Patient denies any tobacco usage or history of. - Family history:: not pertinent. ROS: 09:06 Constitutional: Negative for fever, chills, and weight loss, Eyes: Negative for injury, filiberto pain, redness, and discharge, ENT: Negative for injury, pain, and discharge, Neck: Negative for injury, pain, and swelling, Cardiovascular: Negative for chest pain, palpitations, and edema, Respiratory: Negative for shortness of breath, cough, wheezing, and pleuritic chest pain, Abdomen/GI: Negative for abdominal pain, nausea, vomiting, diarrhea, and constipation, Back: Negative for injury and pain, : Negative for injury, bleeding, discharge, and swelling, MS/Extremity: Negative for injury and deformity, Skin: Negative for injury, rash, and discoloration, Psych: Negative for depression, anxiety, suicide ideation, homicidal ideation, and hallucinations, Allergy/Immunology: Negative for hives, rash, and allergies, Endocrine: Negative for neck swelling, polydipsia, polyuria, polyphagia, and marked weight changes, Hematologic/Lymphatic: Negative for swollen nodes, abnormal bleeding, and unusual bruising. 09:06 Neuro: Positive for near syncope. Exam: : Constitutional: This is a well developed, well nourished patient who is awake, alert, filiberto and in no acute distress. Head/Face: Normocephalic, atraumatic. Eyes: Pupils equal round and reactive to light, extra-ocular motions intact. Lids and lashes normal. Conjunctiva and sclera are non-icteric and not injected. Cornea within normal limits. Periorbital areas with no swelling, redness, or edema. ENT: Nares patent. No nasal discharge, no septal abnormalities noted. Tympanic membranes are normal and external auditory canals are clear. Oropharynx with no redness, swelling, or masses, exudates, or evidence of obstruction, uvula midline. Mucous membranes moist. Neck: Trachea midline, no thyromegaly or masses palpated, and no cervical lymphadenopathy. Supple, full range of motion without nuchal rigidity, or vertebral point tenderness. No Meningismus. Chest/axilla: Normal chest wall appearance and motion. Nontender with no deformity. No lesions are appreciated. Cardiovascular: Regular rate and rhythm with a normal S1 and S2. No gallops, murmurs, or rubs. Normal PMI, no JVD. No pulse deficits. Respiratory: Lungs have equal breath sounds bilaterally, clear to auscultation and percussion. No rales, rhonchi or wheezes noted. No increased work of breathing, no retractions or nasal flaring. Abdomen/GI: Soft, non-tender, with normal bowel sounds. No distension or tympany. No guarding or rebound. No evidence of tenderness throughout. Back: No spinal tenderness. No costovertebral tenderness. Full range of motion. Skin: Warm, dry with normal turgor. Normal color with no rashes, no lesions, and no evidence of cellulitis. MS/ Extremity: Pulses equal, no cyanosis. Neurovascular intact. Full, normal range of motion. Neuro: Awake and alert, GCS 15, oriented to person, place, time, and situation. Cranial nerves II-XII grossly intact. Motor strength 5/5 in all extremities. Sensory grossly intact. Cerebellar exam normal. Normal gait. Psych: Awake, alert, with orientation to person, place and time. Behavior, mood, and affect are within normal limits. 09:06 ECG was reviewed by the Attending Physician. 09:09 Musculoskeletal/extremity: DVT Exam: No signs of deep vein thrombosis. no pain, no filiberto swelling, no tenderness, negative Homans' sign noted on exam, no appreciated bluish discoloration, no erythema, no increased warmth. Vital Signs: 07:37 BP 160 / 100; Pulse 97; Resp 17; Temp 97; Pulse Ox 100% ; Weight 108.86 kg; Height 5 jl7 ft. 3 in. ; Pain 0/10; 09:29 BP 150 / 96 Supine; Pulse 86; rs5 09:29 BP 197 / 106 Standing; Pulse 94; rs5 09:29 BP 160 / 79 Sitting; Pulse 78; rs5 10:30 BP 159 / 88; Pulse 76; Resp 18; Pulse Ox 98% on R/A; ph 11:30 BP 158 / 82; Pulse 76; Resp 18; Temp 98.2; Pulse Ox 99% on R/A; ph 07:37 Body Mass Index 42.51 (108.86 kg, 160.02 cm) jl7 07:37 Pain Scale: Adult jl7 MDM: 07:25 [facility]. [facility] 09[facility]09 Data reviewed: vital signs, nurses notes, lab test result(s), EKG, radiologic studies, [facility] scan, plain films. Consideration of Admission/Observation Escalation of care including admission/observation considered. I considered the following discharge prescriptions or medication management in the emergency department Medications were administered in the Emergency Department. See MAR. Independent interpretation of the following test(s) in the Emergency Department EKG: See my EKG interpretation above. Test considered but Not performed: MRI: no mri brain. Care significantly affected by the following chronic conditions: Hypertension, vertigo, high chlesterol. Counseling: I had a detailed discussion with the patient and/or guardian regarding: the historical points, exam findings, and any diagnostic results supporting the discharge/admit diagnosis, the presence of at least one elevated blood pressure reading (>120/80) during this emergency department visit, lab results, radiology results, the need for outpatient follow up, for definitive care, a resident services supervisor, a family practitioner. 02/21 07:29 Order name: Basic Metabolic Panel; Complete Time: 09:28 filiberto 02/21 07:29 Order name: CBC with Diff; Complete Time: 09:15 filiberto 02/21 07:29 Order name: LFT's; Complete Time: 09:28 [facility] 02/21 07:29 Order name: Magnesium; Complete Time: 09:28 [facility] 02/21 07:29 Order name: NT PRO-BNP; Complete Time: 09:28 [facility] 02/21 07:29 Order name: PT-INR; Complete Time: 09:15 [facility] 02/21 07:29 Order name: Troponin HS; Complete Time: 09:28 filiberto 02/21 07:29 Order name: Urinalysis w/ reflexes; Complete Time: 09:15 [facility] 02/21 07:29 Order name: Lipase; Complete Time: 09:28 [facility] 02/21 07:29 Order name: XRAY Chest (1 view); Complete Time: 09:15 [facility] 02/21 07:30 Order name: CT Head Brain wo Cont; Complete Time: 09:15 [facility] 02/21 07:30 Order name: US Carotid Artery Bilateral; Complete Time: 09:15 [facility] 02/21 07:38 Order name: Echo w/ Doppler eb 02/21 09:17 Order name: CT Aorta for Dissection; Complete Time: 11:09 [facility] 02/21 07:29 Order name: EKG; Complete Time: 07:29 [facility] 02/21 07:29 Order name: Cardiac monitoring; Complete Time: 07:42 [facility] 02/21 07:29 Order name: EKG - Nurse/Tech; Complete Time: 07:41 [facility] 02/21 07:29 Order name: IV Saline Lock; Complete Time: 08:38 [facility] 02/21 07:29 Order name: Labs collected and sent; Complete Time: 08:38 [facility] 02/21 07:29 Order name: O2 Per Protocol; Complete Time: 07:42 [facility] 02/21 07:29 Order name: O2 Sat Monitoring; Complete Time: 07:42 [facility] 02/21 08:53 Order name: Orthostatics; Complete Time: 09:32 [facility] EC:06 Rate is 104 beats/min. Rhythm is regular. QRS [place] is Normal. DE interval is normal. filiberto QRS interval is normal. QT interval is normal. No Q waves. T waves are Normal. No ST changes noted. Clinical impression: NSR w/ Non-specific ST/T Changes, Sinus tachycardia, and No evidence of ischemia. Interpreted by me. Reviewed by me. Administered Medications: 08:38 Drug: NS 0.9% IV 1000 ml Route: IV; Rate: 1 bolus; Site: right antecubital; ss 11:03 Follow up: Response: No adverse reaction; IV Status: Completed infusion; IV Intake: ph 1000ml 10:32 Drug: Rocephin IV 1 grams Route: IV; Rate: per protocol; Site: right antecubital; ph 10:32 Drug: Potassium PO Effervescent Tablet 25 mEq Route: PO; ph 11:08 Follow up: Response: No adverse reaction ph Disposition Summary: 02/21/23 11:09 Discharge Ordered Location: Home filiberto Problem: new filiberto Symptoms: have improved filiberto Condition: Stable filiberto Diagnosis - Dehydration filiberto - Weakness filiberto - Essential (primary) hypertension filiberto - Hypokalemia filiberto Followup: filiberto - With: Private Physician - When: 2 - 3 days - Reason: Recheck today's complaints, Continuance of care, Re-evaluation by your physician Followup: filiberto - With: - When: 2 - 3 days - Reason: Recheck today's complaints, Re-evaluation by your physician Discharge Instructions: - Discharge Summary Sheet filiberto - Dehydration, Elderly filiberto - Dehydration, Adult filiberto - Potassium Content of Foods filiberto - Hypertension, Adult filiberto - Near-Syncope filiberto - Weakness filiberto - Hypertension, Adult, [id number] filiberto - How to Take Your Blood Pressure, [id number] filiberto - Weakness, [id number] filiberto - Dehydration, Adult, [id number] filiberto - Aspirin and Your Heart filiberto - Hypokalemia filiberto - Managing Your Hypertension filiberto - Deconditioning filiberto Forms: - Medication Reconciliation Form filiberto - Thank You Letter filiberto - Antibiotic Education filiberto - Prescription Opioid Use filiberto - Patient Portal Instructions filiberto Signatures: Dispatcher [employer] Saud Jones MD MD cha Blanchard, Shelby, RN RN Lidia Morales RN RN Jus Plascencia RN RN jl7
[2023-02-21 12:08] VITALS: BP 158/82; TEMP 98.2; O2SAT 99
--- NOTE | 2023-02-21 14:23 | ECHO ---
HEIGHT: 5 ft 3 in WEIGHT: 240 lb 0 oz DATE OF STUDY: 02/21/[address]: Saud Astudillo MD 2-DIMENSIONAL: YES M.MODE: YES DOPPLER: YES COLOR FLOW: YES TDS: YES PORTABLE: YES DEFINITY: NO BUBBLE STUDY: NO DIAGNOSIS: LIGHT HEADED CARDIAC HISTORY: CATHERIZATION: NO SURGERY: NO PROSTHETIC VALVE: NO PACEMAKER: NO MEASUREMENTS (cm) DIASTOLIC (NORMALS) SYSTOLIC (NORMALS) IVSd 1.2 (0.6-1.2) LA Diam 2.9 (1.9-4.0) LVEF 51% LVIDd 3.8 (3.5-5.7) LVIDs 2.8 (2.0-3.5) %FS 26% LVPWd 1.2 (0.6-1.2) Ao Diam 2.3 (2.0-3.7) 2 DIMENSIONAL ASSESSMENT: RIGHT ATRIUM: NORMAL LEFT ATRIUM: NORMAL RIGHT VENTRICLE: NORMAL LEFT VENTRICLE: LEFT VENTRICULAR HYPERTROPHY TRICUSPID VALVE: MILD TRICUSPID REGURGITATION MITRAL VALVE: NORMAL PULMONIC VALVE: NORMAL AORTIC VALVE: NORMAL PERICARDIAL EFFUSION: NONE AORTIC ROOT: NORMAL LEFT VENTRICULAR WALL MOTION: APPEARS NORMAL. DOPPLER/COLOR FLOW: SEE BELOW. COMMENTS: 1. POOR WINDOWS. 2. OVERALL LEFT VENTRICULAR EJECTION FRACTION APPEARS NORMAL. 3. MILD TRICUSPID REGURGITATION. 4. MILD CONCENRIC LEFT VENTRICULAR HYPERTROPHY. TECHNOLOGIST: ZO ANN
--- NOTE | 2023-02-24 11:53 | EKG ---
Test Date: 2023-02-21 Test Time: 07:37:38 Special Effects Person: GIBSON MEASUREMENT RESULTS: Intervals: Rate: 104 DE: 172 QRSD: 100 QT: 360 QTc: 473 [place]: P: 52 DE: 172 QRS: 27 T: 94 INTERPRETIVE STATEMENTS: Sinus tachycardia Nonspecific T wave abnormality Abnormal ECG Compared to ECG 03/02/2022 17:35:59 Sinus rhythm no longer present T-wave abnormality still present Electronically Signed On 02-24-23 11:47:25 CDT by Ky Hawkins
== END 2023-02-21 11:50 | disposition home or self-care (01) ==
LOC: ER 07:24
DX: E86.0 Dehydration (principal); E87.6 Hypokalemia; R53.1 Weakness; I10 Essential (primary) hypertension; E78.00 Pure hypercholesterolemia, unspecified
CPT/HCPCS: 96361; 93005; 93306; 85025; 81001; 80048; 36415; 83735; 85610; 80076; 84484; 83690; 83880; 70450; 71275; 74175; 71045; 93880; 96374; 99285; Q9967; J7030; J0696

== ENCOUNTER → 2023-11-01 | Emergency (ER) | payer OTHER ==
--- OUTSIDE RECORDS SUMMARY | 2023-11-01 19:01 | XMS REPORT | Continuity of Care Document ---
Author Name Unknown Address [address] [place] [address] [address] [place] [id number] [facility] Address [address] [place] [address] [address] [place] [address] Care Team Providers Care Correctional Supervisor Name Role Phone SCHAUBROECK_L Attending Clinician Unavailable SCHAUBROECK_L Admitting Clinician Unavailable Payers Payer Name Policy Type Policy Number Effective Date Expirati on Date Source Encounters Start Date/Time End Date/Time Encounter Type Admission Type Attending Clinicians Care Facility Care Department Encounter ID Source 2022-11-20 00:00:00 2022-11-20 00:00:00 Outpatient [facility] [id number] 2022-10-16 00:00:00 2022-10-16 00:00:00 Outpatient [facility] [id number] 2022-09-11 00:00:00 2022-09-11 00:00:00 Outpatient [facility]K [facility] [id number] 2021-01-19 01:03:00 2021-01-19 01:03:00 Outpatient [facility]OECK [facility] [id number] 2020-12-15 01:02:00 2020-12-15 01:02:00 Outpatient [facility]OECK [facility] [id number] 2020-11-10 01:02:00 2020-11-10 01:02:00 Outpatient [facility]AUBROECK [facility] [id number]
[2023-11-01 20:44] LABS: Absolute Basophils 0.1 K/uL (0-0.5); Absolute Lymphocytes (CBC) 1.8 K/uL (0.7-4.9); Absolute Monocytes 0.6 K/uL (0.1-1.3); Absolute Neutrophil 8.6 K/uL (1.8-8.0); Basophils % 0.8 % (0-1.3); Eosinophils % 0.2 % (0-4.4); Hematocrit 46.1 % (36.0-45.0); Hemoglobin 15.1 g/dL (12.0-15.0); MCHC 32.8 g/dL (32.0-36.0); MCV 91.5 fL (80-100); MPV 9.7 fL (7.6-11.3); Monocytes % 5.2 % (3.3-12.3); Neutrophils % 77.8 % (41.7-73.7); Platelets 329 thou/uL (152-406); RBC Red Blood Cell Count 5.04 M/uL (3.86-4.86); Red Cell Distribution Width 15.2 % (12.1-15.2)
[2023-11-01 21:01] LABS: Albumin 3.8 g/dL (3.4-5.0); Albumin/Globulin Ratio 0.9 (1.1-1.8); Anion Gap 9.4 mEq/L (5.0-15.0); Bilirubin Direct 0.1 mg/dL (0-0.2); Bilirubin Indirect, Calculated 0.3 mg/dL (0.2-0.8); Bilirubin Total 0.4 mg/dL (0.2-1.0); Globulin 4.1 g/dL (2.3-3.5); Magnesium 2.2 mg/dL (1.6-2.4); Potassium 3.4 mEq/L (3.5-5.1); Protein, Total 7.9 g/dL (6.4-8.2); Troponin High Sensitivity 36.2 pg/mL (<58.9)
--- NOTE | 2023-11-01 21:18 | ER ---
Nurse's Notes [facility] Name: Zaynab Cochran Age: 68 yrs Sex: Female : 1955 Arrival Date: 11/01/2023 Time: 18:58 Bed 15 Private MD: Nick Campos E Diagnosis: Essential (primary) hypertension Presentation: 10/31 19:12 Chief complaint: Patient states: high blood pressure readings at home; denies CP, ALANIZ, km8 or SOB. Coronavirus screen: Client denies travel out of the [place] in the last 14 days. Ebola Screen: No symptoms or risks identified at this time. Initial Sepsis Screen: Does the patient meet any 2 criteria? No. Patient's initial sepsis screen is negative. Does the patient have a suspected source of infection? No. Patient's initial sepsis screen is negative. Risk Assessment: Do you want to hurt yourself or someone else? Patient reports no desire to harm self or others. Onset of symptoms was November 01, 2023. 19:12 Method Of Arrival: Ambulatory km8 19:14 Acuity: HANK 2 km8 Triage Assessment: 19:12 General: Appears in no apparent distress. comfortable, Behavior is calm, cooperative, km8 appropriate for age. Pain: Denies pain. EENT: No signs and/or symptoms were reported regarding the EENT system. Neuro: Level of Consciousness is awake, alert, obeys commands, Oriented to person, place, time, situation. Cardiovascular: Denies chest pain, shortness of breath, Patient's skin is warm and dry. Respiratory: Airway is patent Respiratory effort is even, unlabored, Respiratory pattern is regular, symmetrical. GI: No signs and/or symptoms were reported involving the gastrointestinal system. : No signs and/or symptoms were reported regarding the genitourinary system. Derm: No signs and/or symptoms reported regarding the dermatologic system. Skin is intact, Skin is dry, Skin is normal, Skin temperature is warm. Musculoskeletal: No signs and/or symptoms reported regarding the musculoskeletal system. Circulation, motion, and sensation intact. Range of motion: intact in all extremities. Historical: - Allergies: 19:12 No Known Allergies; km8 - Home Meds: 19:12 amlodipine oral [Active]; atorvastatin oral [Active]; lisinopril Oral [Active]; km8 - PMHx: 19:12 High Cholesterol; Hypertension; Vertigo; km8 - PSHx: 19:12 Ligation of fallopian tube; Total abdominal hysterectomy; km8 - Immunization history:: Client reports receiving the 2nd dose of the Covid vaccine, Flu vaccine is not up to date. - Social history:: Smoking status: Patient denies any tobacco usage or history of. Patient uses alcohol, but reports only rare drinking. Patient/guardian denies using street drugs. Screenin:22 [facility] ED Fall Risk Assessment (Adult) History of falling in the last 3 months, ha1 including since admission No falls in past 3 months (0 pts) Confusion or Disorientation No (0 pts) Intoxicated or Sedated No (0 pts) Impaired Gait No (0 pts) Mobility Assist Device Used No (0 pt) Altered Elimination No (0 pt) Score/Fall Risk Level 0 - 2 = Low Risk Oriented to surroundings, Maintained a safe environment, Educated pt \T\ family on fall prevention, incl call for assistance when getting out of bed, Hourly rounding (assess needs \T\ fall precautionary measures) done. Abuse screen: Denies threats or abuse. Denies injuries from another. Nutritional screening: No deficits noted. On. Tuberculosis screening: No symptoms or risk factors identified. Assessment: 20:00 General: Appears comfortable, Behavior is calm, cooperative. Pain: Denies pain. Neuro: ha1 Level of Consciousness is awake, alert, obeys commands, Oriented to person, place, time, situation. Cardiovascular: Patient's skin is warm and dry. Respiratory: Airway is patent Respiratory effort is even, unlabored, Respiratory pattern is regular. 21:10 Reassessment: Patient and/or family updated on plan of care and expected duration. Pain ha1 level reassessed. Patient is alert, oriented x 3, equal unlabored respirations, skin warm/dry/pink. 21:38 Reassessment: Patient and/or family updated on plan of care and expected duration. Pain ha1 level reassessed. Patient is alert, oriented x 3, equal unlabored respirations, skin warm/dry/pink. Patient denies pain at this time. Patient states feeling better. Patient states symptoms have improved. Vital Signs: 19:14 BP 183 / 75; Pulse 101; Resp 16; Temp 97.7(TE); Pulse Ox 100% on R/A; Weight 117.93 kg km8 (R); Height 5 ft. 4 in. (R); Pain 0/10; 20:10 BP 152 / 77; Pulse 93; Resp 17 S; Pulse Ox 99% on R/A; ha1 21:25 BP 160 / 87; Pulse 86; Resp 18 S; Temp 98.2(O); Pulse Ox 100% on R/A; ha1 19:14 Body Mass Index 44.63 (117.93 kg, 162.56 cm) km8 19:14 Pain Scale: Adult [facility] ED Course: 19:00 Patient arrived in ED. rg4 19:01 Nick Campos MD is Private Physician. rg4 19:01 Jose Barr MD is Attending Physician. rt 19:12 Arm band placed on right wrist. km8 19:15 Triage completed. km8 19:44 Luda Rivero, DAYNE is Primary Nurse. ha1 20:00 Patient has correct armband on for positive identification. Placed in gown. Bed in low ha1 position. Call light in reach. Side rails up X 1. Adult w/ patient. 20:10 Missed attempt(s): 22 gauge in right antecubital area. Bleeding controlled, band aid ha1 applied, catheter tip intact. 20:15 Inserted saline lock: 22 gauge in left antecubital area, using aseptic technique. Blood ha1 collected. 20:32 Basic Metabolic Panel Sent. ha1 20:32 CBC with Diff Sent. ha1 20:32 LFT's Sent. ha1 20:32 Magnesium Sent. ha1 20:32 Troponin HS Sent. ha1 21:37 Provided Education on: NEED TO FOLLOW A LOW SODIUM DIET AND FOLLOW UP WITH PCP. ha1 21:37 No provider procedures requiring assistance completed. IV discontinued, intact, ha1 bleeding controlled, No redness/swelling at site. Pressure dressing applied. Administered Medications: No medications were administered Medication: 21:37 VIS not applicable for this client. ha1 Outcome: 21:17 Discharge ordered by . rt 21:37 Discharged to home ambulatory, with family, ha1 21:37 Condition: stable 21:37 Discharge instructions given to patient, family, Instructed on discharge instructions, follow up and referral plans. Demonstrated understanding of instructions, follow-up care, 21:39 Patient left the ED. ha1 Signatures: Bernarda Sanches rg4 Luda Rivero, RN RN ha1 Jose Barr MD MD rt Yisel Contreras RN RN km8
--- NOTE | 2023-11-01 21:18 | EDPHYS ---
Physician Documentation [facility] Name: Zaynab Cochran Age: 68 yrs Sex: Female : 1955 Arrival Date: 11/01/2023 Time: 18:58 Bed 15 Private MD: Nick Campos E ED Physician Jose Barr HPI: 10/31 20:27 This 68 yrs old Black Female presents to ER via Ambulatory with complaints of High rt Blood Pressure. 20:27 Patient presents to the ED with reports of hypertension. States that her blood pressure rt was about 180 at home. The patient denies any chest pain, dizziness, acute symptoms at this time. She states that she did take her antihypertensive medications. Denies other acute complaints at this time, symptoms are moderate in severity, no other aggravating or alleviating factors.. Historical: - Allergies: 19:12 No Known Allergies; km8 - Home Meds: 19:12 amlodipine oral [Active]; atorvastatin oral [Active]; lisinopril Oral [Active]; km8 - PMHx: 19:12 High Cholesterol; Hypertension; Vertigo; km8 - PSHx: 19:12 Ligation of fallopian tube; Total abdominal hysterectomy; km8 - Immunization history:: Client reports receiving the 2nd dose of the Covid vaccine, Flu vaccine is not up to date. - Social history:: Smoking status: Patient denies any tobacco usage or history of. Patient uses alcohol, but reports only rare drinking. Patient/guardian denies using street drugs. ROS: 20:27 Constitutional: Negative for fever, chills, and weight loss, Cardiovascular: Negative rt for chest pain, palpitations, and edema, Respiratory: Negative for shortness of breath, cough, wheezing, and pleuritic chest pain, Abdomen/GI: Negative for abdominal pain, nausea, vomiting, diarrhea, and constipation, Skin: Negative for injury, rash, and discoloration, Neuro: Negative for headache, weakness, numbness, tingling, and seizure, Psych: Negative for depression, anxiety, suicide ideation, homicidal ideation, and hallucinations, Exam: 20:27 Constitutional: This is a well developed, well nourished patient who is awake, alert, rt and in no acute distress. Head/Face: Normocephalic, atraumatic. Chest/axilla: Normal chest wall appearance and motion. Nontender with no deformity. No lesions are appreciated. Cardiovascular: Regular rate and rhythm with a normal S1 and S2. No gallops, murmurs, or rubs. Normal PMI, no JVD. No pulse deficits. Respiratory: Lungs have equal breath sounds bilaterally, clear to auscultation and percussion. No rales, rhonchi or wheezes noted. No increased work of breathing, no retractions or nasal flaring. Abdomen/GI: Soft, non-tender, with normal bowel sounds. No distension or tympany. No guarding or rebound. No evidence of tenderness throughout. Skin: Warm, dry with normal turgor. Normal color with no rashes, no lesions, and no evidence of cellulitis. MS/ Extremity: Pulses equal, no cyanosis. Neurovascular intact. Full, normal range of motion. Neuro: Awake and alert, GCS 15, oriented to person, place, time, and situation. Cranial nerves II-XII grossly intact. Motor strength 5/5 in all extremities. Sensory grossly intact. Cerebellar exam normal. Normal gait. 20:30 ECG was reviewed by the Attending Physician. rt Vital Signs: 19:14 BP 183 / 75; Pulse 101; Resp 16; Temp 97.7(TE); Pulse Ox 100% on R/A; Weight 117.93 kg km8 (R); Height 5 ft. 4 in. (R); Pain 0/10; 20:10 BP 152 / 77; Pulse 93; Resp 17 S; Pulse Ox 99% on R/A; ha1 21:25 BP 160 / 87; Pulse 86; Resp 18 S; Temp 98.2(O); Pulse Ox 100% on R/A; ha1 19:14 Body Mass Index 44.63 (117.93 kg, 162.56 cm) 8 19:14 Pain Scale: Adult km8 MDM: 19:18 Patient medically screened. rt 11/01 01:04 Differential diagnosis: Hypertension, renal dysfunction, acute coronary syndrome. Data rt reviewed: vital signs, nurses notes, lab test result(s), EKG. Consideration of Admission/Observation Escalation of care including admission/observation considered. No signs of endorgan dysfunction, hypertension improving with treatments prior to the emergency department arrival, stable for outpatient care. Care significantly affected by the following chronic conditions: Hypertension. Counseling: I had a detailed discussion with the patient and/or guardian regarding the historical points, exam findings, and any diagnostic results supporting the discharge/admit diagnosis, lab results, the need for outpatient follow up, to return to the emergency department if symptoms worsen or persist or if there are any questions or concerns that arise at home. Response to treatment: the patient's symptoms have markedly improved after treatment. 10/31 19:26 Order name: Basic Metabolic Panel; Complete Time: 21:12 rt 10/31 19:26 Order name: CBC with Diff; Complete Time: 21:12 rt 10/31 19:26 Order name: LFT's; Complete Time: 21:12 rt 10/31 19:26 Order name: Magnesium; Complete Time: 21:12 rt 10/31 19:26 Order name: Troponin HS; Complete Time: 21:12 rt 10/31 19:26 Order name: EKG; Complete Time: 19:27 rt 10/31 19:26 Order name: Cardiac monitoring; Complete Time: 19:44 rt 10/31 19:26 Order name: EKG - Nurse/Tech; Complete Time: 20:03 rt 10/31 19:26 Order name: IV Saline Lock; Complete Time: 20:32 rt 10/31 19:26 Order name: Labs collected and sent; Complete Time: 20:32 rt 10/31 19:26 Order name: O2 Per Protocol; Complete Time: 20:32 rt 10/31 19:26 Order name: O2 Sat Monitoring; Complete Time: 20:32 rt EC/23 20:30 Rate is 89 beats/min. Rhythm is regular, Normal Sinus Rhythm with No ectopy. QRS [place] rt is Normal. [place] interval is normal. QRS interval is normal. QT interval is normal. No Q waves. Clinical impression: NSR w/ Non-specific ST/T Changes. Administered Medications: No medications were administered Disposition Summary: 11/01/23 21:17 Discharge Ordered Notes: Location: Home rt Problem: an acute exacerbation rt Symptoms: have improved rt Condition: Stable rt Diagnosis - Essential (primary) hypertension rt Followup: rt - With: Private Physician - When: 2 - 3 days - Reason: Discharge Instructions: - Discharge Summary Sheet rt - Hypertension, Adult rt Forms: - Medication Reconciliation Form rt - Thank You Letter rt - Antibiotic Education rt - Prescription Opioid Use rt - Patient Portal Instructions rt - Leadership Thank You Letter rt Signatures: Dispatcher [employer] EDMS [place], Jose, MD MD rt Yisel Contreras, RN RN km8
[2023-11-01 22:44] VITALS: BP 160/87; TEMP 98.2; O2SAT 100
--- NOTE | 2023-11-03 14:18 | EKG ---
Test Date: 2023-11-01 Test Time: 19:43:40 Manager Lpn: BF MEASUREMENT RESULTS: Intervals: Rate: 89 HI: 182 QRSD: 86 QT: 378 QTc: 459 [place]: P: 52 HI: 182 QRS: 21 T: 21 INTERPRETIVE STATEMENTS: Normal sinus rhythm Nonspecific ST and T wave abnormality Abnormal ECG Compared to ECG 02/21/2023 07:37:38 ST (T wave) deviation now present Sinus tachycardia no longer present T-wave abnormality no longer present Electronically Signed On 11-03-23 14:14:34 CDT by Ky Hawkins
== END ==
LOC: ER 18:58
DX: I10 Essential (primary) hypertension (principal)
CPT/HCPCS: 36415; 80048; 80076; 83735; 84484; 85025; 93005; 99284